=== PATIENT | female | born 1990 | race Caucasian/White ===

== ENCOUNTER 2017-05-14 00:32 | Emergency (ER) | payer MEDICAID ==
[2017-05-14 00:42] VITALS: O2SAT 98
[2017-05-14] MEDS ORDERED: Sodium Chloride 0.9% 1,000 ML IV ONE (00:51)
[2017-05-14] MEDS ORDERED: Iohexol 240 (50 ml) PO ONE (00:54)
[2017-05-14 01:06] LABS: BASO % 0.3 % (0.0-2.0); EOS # 0.2 K/uL (0.0-0.7); EOS % 1.1 % (0.0-4.0); HEMATOCRIT 38.7 % (34.0-47.0); LYMPH # 3.3 K/uL (1.0-4.3); LYMPH % 21.8 % (20.0-40.0); MEAN CELL VOLUME 79.2 fL (81.0-99.0); MEAN CORPUSCULAR HEMOGLOBIN 25.7 pg (27.0-31.0); MEAN CORPUSCULAR HGB CONC 32.4 g/dL (33.0-37.0); MEAN PLATELET VOLUME 8.9 fL (7.2-11.7); MONO # 0.9 K/uL (0.0-0.8); MONO % 5.8 % (0.0-10.0); RED CELL DISTRIBUTION WIDTH 16.5 % (11.5-14.5); WHITE BLOOD COUNT 15.3 K/uL (4.8-10.8)
[2017-05-14] MEDS ORDERED: Iohexol 240 (50 ml) ONE ×2 (01:07→01:30)
[2017-05-14] MEDS ORDERED: Sodium Chloride 0.9% 1,000 ML ONE (01:07)
[2017-05-14] MEDS ORDERED: Iodixanol 320 MG/ML 100 ML BOTTLE IV ONE (01:08)
[2017-05-14 01:27] LABS: RBC URINE 97 /hpf (0-3); URINE BACTERIA RARE (<OCC); URINE BILIRUBIN NEGATIVE (NEGATIVE); URINE BLOOD 2+ (NEGATIVE); URINE COLOR Yellow (YELLOW); URINE GLUCOSE (UA) NORMAL (Normal); URINE KETONE NEGATIVE (NEGATIVE); URINE LEUKOCYTE ESTERASE 3+ Leu/uL (Negative); URINE PROTEIN 2+ mg/dL (NEGATIVE); URINE UROBILINOGEN NORMAL mg/dL (0.2-1.0); WBC URINE 405 /hpf (0-5)
[2017-05-14 01:32] LABS: CHLORIDE 103 mmol/L (98-107); SODIUM 138 mmol/L (132-148)
[2017-05-14 01:33] LABS: POTASSIUM 3.6 mmol/L (3.6-5.2)
--- NOTE | 2017-05-14 01:33 | C.PDOC ---
History Of Present Illness 26 year old female who presents to the ER with a complaint of abdominal pain for the past few days, associated with nausea. Denies vomiting, diarrhea, dysuria, or hematuria. Chief Complaint (Nursing): Abdominal Pain History Per: Patient History/Exam Limitations: no limitations Onset/Duration Of Symptoms: Days Current Symptoms Are (Timing): Still Present Location Of Pain/Discomfort: RLQ Radiation Of Pain To:: None Quality Of Discomfort: Unable To Describe Associated Symptoms: Nausea. denies: Vomiting, Urinary Symptoms Exacerbating Factors: None Alleviating Factors: None Recent travel outside of the [place]: No Past Medical History Reviewed: Historical Data, Nursing Documentation, Vital Signs Vital Signs: Last Vital Signs Temp 98 F 05/14/17 04:00 Pulse 80 05/14/17 04:00 Resp 14 05/14/17 04:00 BP 110/70 05/14/17 04:00 Pulse Ox 98 05/14/17 05:24 - Medical History PMH: Hypercholesterolemia Surgical History: Family History: States: Unknown Family Hx - Social History Hx Alcohol Use: Yes Hx Substance Use: No - Immunization History Hx Tetanus Toxoid Vaccination: No Hx Influenza Vaccination: Yes Hx Pneumococcal Vaccination: No Review Of Systems Gastrointestinal: Positive for: Nausea, Abdominal Pain. Negative for: Vomiting , Diarrhea Genitourinary: Negative for: Dysuria, Hematuria Physical Exam - Physical Exam Appears: Non-toxic Skin: Normal Color, Warm, Dry Head: Atraumatic, Normacephalic Oral Mucosa: Moist Chest: Symmetrical, No Tenderness Cardiovascular: Rhythm Regular, No Murmur Respiratory: Normal Breath Sounds, No Rales, No Rhonchi, No Wheezing Gastrointestinal/Abdominal: Soft, Tenderness (RLQ), No Guarding, No Rebound Neurological/Psych: Oriented x3, Normal Speech, Normal Cognition ED Course And Treatment - Laboratory Results Result Diagrams: 05/14/17 01:03 05/14/17 01:03 O2 Sat by Pulse Oximetry: 98 (Room air) Pulse Ox Interpretation: Normal - CT Scan/US CT abd/pel Other Rad Studies (CT/US): Read By Radiologist, Radiology Report Reviewed CT/US Interpretation: EXAM: CT Abdomen and Pelvis With Intravenous Contrast. CLINICAL HISTORY: 26 years old, female; Pain; Abdominal pain; Prior surgery; Surgery type: ; Additional info: Rlq abd pain. TECHNIQUE: Axial computed tomography images of the abdomen and pelvis with intravenous contrast. This CT. exam was performed using one or more of the following dose reduction techniques: automated. exposure control, adjustment of the mA and/or kV according to patient size, and/or use of iterative. reconstruction technique. Sagittal reformatted images were created and reviewed. CONTRAST: 100 mL of [id number] administered intravenously. COMPARISON: No relevant prior studies available. FINDINGS: Lower thorax: The bilateral lung bases are clear. ABDOMEN: Liver: No acute findings. Gallbladder and bile ducts: The gallbladder is decompressed. No calcified stones. No significant. intra- or extrahepatic biliary ductal dilation. Pancreas: Enhances homogeneously. No ductal dilation. No discrete mass. Spleen: No acute findings. Adrenals: No acute findings. Kidneys and ureters: No acute findings. No hydronephrosis or renal calculi. No discrete solid mass. PELVIS: Bladder: No acute findings. Reproductive: A 33 mm focus of fluid attenuation is identified within the right adnexa, possibly a right. ovarian cyst. Appendix: The contrast-filled appendix is of normal caliber (series 2, image 80). ABDOMEN and PELVIS: Stomach and bowel: No obstruction. No mucosal thickening. Peritoneum: No significant fluid collection. No free air. Lymph nodes: No pathologically enlarged lymph nodes. Vasculature: Unremarkable. Bones: No acute fracture. IMPRESSION: Normal appendix. 3 cm (likely) right ovarian cyst. Progress Note: CT abd/pel and blood work ordered. Toradol and IV fluids administered. Disposition Counseled Patient/Family Regarding: Diagnosis - Disposition Referrals: [facility] [Outside] Disposition: HOME/ ROUTINE Disposition Time: 05:27 Condition: STABLE Prescriptions: Ciprofloxacin HCl [Cipro] 500 mg PO BID #14 tablet Naproxen [Naprosyn Tab] 375 mg PO TIDPC #20 tab Instructions: Urinary Tract Infection in Women (DC), Ovarian Cyst (ED) - POA Present On Arrival: None - Clinical Impression Clinical Impression: Urinary tract infection, Ovarian cyst - Scribe Statement The provider has reviewed the documentation as recorded by the Scribsourav Edouard All medical record entries made by the Scribe were at my direction and personally dictated by me. I have reviewed the chart and agree that the record accurately reflects my personal performance of the history, physical exam, medical decision making, and the department course for this patient. I have also personally directed, reviewed, and agree with the discharge instructions and disposition.
[2017-05-14 01:34] LABS: GFR AFRICAN-AMERICAN > 60
[2017-05-14 01:35] LABS: ALB/GLOB RATIO 1.1 (1.0-2.1); ALKALINE PHOSPHATASE 144 U/L (38-126); ALT/SGPT 27 U/L (9-52); AST/SGOT 17 U/L (14-36); BILIRUBIN,TOTAL 0.5 mg/dL (0.2-1.3); BLOOD UREA NITROGEN 9 mg/dL (7-17); CARBON DIOXIDE 23 mmol/L (22-30); GLUCOSE,RANDOM 89 mg/dL (65-105); TOTAL PROTEIN 7.7 g/dL (6.3-8.3)
[2017-05-14 04:50] VITALS: BP 110/70; PULSE 80; RESP 14; TEMP 98
--- NOTE | 2017-05-14 05:10 | CT ---
EXAM: CT Abdomen and Pelvis With Intravenous Contrast CLINICAL HISTORY: 26 years old, female; Pain; Abdominal pain; Prior surgery; Surgery type: ; Additional info: Rlq abd pain TECHNIQUE: Axial computed tomography images of the abdomen and pelvis with intravenous contrast. This CT exam was performed using one or more of the following dose reduction techniques: automated exposure control, adjustment of the mA and/or kV according to patient size, and/or use of iterative reconstruction technique. Sagittal reformatted images were created and reviewed. CONTRAST: 100 mL of [id number] administered intravenously. COMPARISON: No relevant prior studies available. FINDINGS: Lower thorax: The bilateral lung bases are clear. ABDOMEN: Liver: No acute findings. Gallbladder and bile ducts: The gallbladder is decompressed. No calcified stones. No significant intra- or extrahepatic biliary ductal dilation. Pancreas: Enhances homogeneously. No ductal dilation. No discrete mass. Spleen: No acute findings. Adrenals: No acute findings. Kidneys and ureters: No acute findings. No hydronephrosis or renal calculi. No discrete solid mass. PELVIS: Bladder: No acute findings. Reproductive: A 33 mm focus of fluid attenuation is identified within the right adnexa, possibly a right ovarian cyst. Appendix: The contrast-filled appendix is of normal caliber (series 2, image 80). ABDOMEN and PELVIS: Stomach and bowel: No obstruction. No mucosal thickening. Peritoneum: No significant fluid collection. No free air. Lymph nodes: No pathologically enlarged lymph nodes. Vasculature: Unremarkable. Bones: No acute fracture. IMPRESSION: Normal appendix. 3 cm (likely) right ovarian cyst.
== END 2017-05-14 05:34 | disposition home or self-care (01) ==
LOC: C.ER 00:32
DX: N39.0 Urinary tract infection, site not specified (principal); N83.201 Unspecified ovarian cyst, right side
CPT/HCPCS: 74177; 80053; 81001; 83690; 84702; 84703; 85025; 96361; 96374; 99284; J1885; J7040; Q9966; Q9967

== ENCOUNTER 2018-01-17 16:01 | Emergency (ER) | payer MEDICAID ==
[2018-01-17 16:07] VITALS: TEMP 98.3
--- NOTE | 2018-01-17 19:13 | C.PDOC ---
History Of Present Illness 27 yo female, 5 weeks gestation presents with abd pain and vb. pt states went to clinic yesterday, found out she was pregnnat currently pain free. no fevers, n/v/d, or other complaitns Time Seen by Provider: 01/17/18 19:07 Chief Complaint (Nursing): Female Genitourinary Past Medical History Reviewed: Historical Data, Nursing Documentation, Vital Signs Vital Signs: Last Vital Signs Temp 98.3 F 01/17/18 16:04 Pulse 99 H 01/17/18 21:00 Resp 16 01/17/18 21:00 BP 138/88 01/17/18 21:00 Pulse Ox 99 01/17/18 21:00 - Medical History PMH: Hypercholesterolemia Surgical History: Family History: States: Unknown Family Hx - Social History Hx Alcohol Use: Yes Hx Substance Use: No - Immunization History Hx Tetanus Toxoid Vaccination: No Hx Influenza Vaccination: No Hx Pneumococcal Vaccination: No Review Of Systems Gastrointestinal: Positive for: Abdominal Pain Genitourinary: Positive for: Vaginal Bleeding Physical Exam - Physical Exam Appears: Well, No Acute Distress Skin: Normal Color, Warm, Dry Eye(s): bilateral: Normal Inspection, PERRL, EOMI Nose: Normal Throat: Normal Neck: Normal Cardiovascular: Rhythm Regular Respiratory: Normal Breath Sounds Gastrointestinal/Abdominal: Normal Exam, Soft, No Tenderness, No Guarding, No Rebound Back: Normal Inspection Pelvic: Vaginal Bleeding (mild to moderate), No Cervical Motion Tenderness, No Cervix Open Extremity: Normal ROM ED Course And Treatment - Laboratory Results Result Diagrams: 01/17/18 19:31 01/17/18 19:31 O2 Sat by Pulse Oximetry: 97 Medical Decision Making Medical Decision Making: r/o etctopic vs miscarriage- labs imaging pendign noted beta neg and ucg neg. h/h stable. pt reports "passed large clot". suspect complete ab. os closed. rh pos. vitals stable . adviseoutpt fu and return precauiotns Disposition - Disposition [facility]errals[facility] [[facility]] [facility] [Outside] Disposition: HOME/ ROUTINE Disposition Time: 21:02 Condition: STABLE Additional Instructions: return to er with worsening symptoms or concerns. please follow up with your obgyn. Prescriptions: Nitrofurantoin Macrocrystals [Macrobid] 100 mg PO BID #14 cap Instructions: Miscarriage, Heavy Periods Forms: [employer] (Romansh) - Clinical Impression Clinical Impression: Complete , Vaginal bleeding
[2018-01-17 19:35] LABS: BASO # 0.1 K/uL (0.0-0.2); BASO % 0.9 % (0.0-2.0); EOS # 0.3 K/uL (0.0-0.7); EOS % 2.7 % (0.0-4.0); HEMOGLOBIN 12.5 g/dL (11.0-16.0); LYMPH # 3.5 K/uL (1.0-4.3); LYMPH % 31.5 % (20.0-40.0); MEAN CELL VOLUME 80.7 fL (81.0-99.0); MEAN CORPUSCULAR HEMOGLOBIN 26.9 pg (27.0-31.0); MEAN CORPUSCULAR HGB CONC 33.4 g/dL (33.0-37.0); MEAN PLATELET VOLUME 8.7 fL (7.2-11.7); MONO % 8.6 % (0.0-10.0); NEUT # 6.3 K/uL (1.8-7.0); NEUT % 56.3 % (50.0-75.0); NRBC % 0.2 % (0.0-2.0); RBC 4.65 Mil/uL (3.80-5.20); RED CELL DISTRIBUTION WIDTH 15.1 % (11.5-14.5); WHITE BLOOD COUNT 11.2 K/uL (4.8-10.8)
[2018-01-17 19:37] LABS: HCG,QUALITATIVE URINE NEGATIVE (NEGATIVE)
[2018-01-17 19:39] LABS: SQUAMOUS EPITHIAL 36 /hpf (0-5); URINE BACTERIA MANY (<OCC); URINE BILIRUBIN NEGATIVE (NEGATIVE); URINE BLOOD 3+ (NEGATIVE); URINE CLARITY Hazy (Clear); URINE COLOR Amber (YELLOW); URINE GLUCOSE (UA) NORMAL (Normal); URINE LEUKOCYTE ESTERASE 3+ Leu/uL (Negative); URINE PROTEIN 2+ mg/dL (NEGATIVE)
[2018-01-17 19:43] LABS: PROTHROMBIN TIME 11.1 SECONDS (9.7-12.2)
[2018-01-17 19:46] LABS: ALB/GLOB RATIO 1.1 (1.0-2.1); ALT/SGPT 15 U/L (9-52); AST/SGOT 14 U/L (14-36); BLOOD UREA NITROGEN 12 mg/dL (7-17); CALCIUM 8.9 mg/dl (8.6-10.4); GFR AFRICAN-AMERICAN > 60; GFR NON-AFRICAN AMERICAN > 60
--- NOTE | 2018-01-17 20:56 | US ---
EXAM: US First Trimester, Transabdominal US , Transvaginal CLINICAL HISTORY: 27 years old, female; Pain; Abdominal pain; Other: None specified; Additional info: Abd pain and TECHNIQUE: Real-time transabdominal and transvaginal obstetrical ultrasound of the maternal pelvis and a first trimester with image documentation. Transvaginal imaging was used for better evaluation of the fetus and adnexa. COMPARISON: No relevant prior studies available. FINDINGS: Gestation: No intrauterine gestational sac. Uterus/cervix: Retroverted uterus. Endometrium: 0.9 cm in thickness. Closed cervix. Probable nabothian cyst. Ovaries: Normal ovaries. No adnexal masses. Free fluid: Trace free fluid within pelvis. IMPRESSION: 1. No intrauterine gestation. DDX: Early IUP, missed , ectopic . 2. Incidental/non-acute findings are described above.
[2018-01-17 21:00] VITALS: BP 138/88; PULSE 99; RESP 16
[2018-01-17 21:14] VITALS: O2SAT 97
== END 2018-01-17 21:21 | disposition home or self-care (01) ==
LOC: C.ER 16:01
DX: O03.9 Complete or unspecified spontaneous abortion without complication (principal)